=== PATIENT | female | born 1950 | race Caucasian/White ===

== ENCOUNTER 2019-11-20 14:10 | Emergency (ER) | payer MEDICARE, OTHER ==
[2019-11-20] MEDS ORDERED: Sodium Chloride 0.9% 10 ML Syringe FLUSH PRN (15:30)
[2019-11-20] MEDS ORDERED: Sodium Chloride 0.9% 2.5 ML Syringe FLUSH PRN (15:30)
[2019-11-20] MEDS ORDERED: Sodium Chloride 0.9% 1,000 ML IV ONE (15:30)
--- NOTE | 2019-11-20 16:00 | EDM.PDOC ---
ED HPI GENERAL MEDICAL PROBLEM - General Chief Complaint: Gastrointestinal Problem Stated Complaint: DIARRHEA FOR 3 PLUS DAYS Time Seen by Provider: 11/20/19 15:20 Source of Information: Reports: Patient History Limitations: Reports: No Limitations - History of Present Illness INITIAL COMMENTS - FREE TEXT/NARRATIVE: HISTORY AND PHYSICAL: History of present illness: Patient is a 69-year-old female presents to the ED with complaint of diarrhea. She states for the past 3 days she is having loose, watery stools every 15 minutes. Stool is nonblood. She denies fevers, chills, nausea, vomiting, abdominal pain, dysuria, hematuria, back pain, cough. She states she does have a cold and has a runny nose. She denies recent travel. She denies new medications. History of diabetes. Surgical history includes hysterectomy. Patient has taken immodium without relief. Review of systems: As per history of present illness and below otherwise all systems reviewed and negative. Past medical history: As per history of present illness and as reviewed below otherwise noncontributory. Surgical history: As per history of present illness and as reviewed below otherwise noncontributory. Social history: No reported history of drug or alcohol abuse. Family history: As per history of present illness and as reviewed below otherwise noncontributory. Physical exam: General: Patient sitting comfortably in no acute distress and nontoxic appearing HEENT: Atraumatic, normocephalic, pupils reactive, negative for conjunctival pallor or scleral icterus, mucous membranes moist, throat clear, neck supple, nontender, trachea midline. No meningeal signs. Lungs: Clear to auscultation, breath sounds equal bilaterally, chest nontender. Heart: S1S2, regular, negative for clicks, rubs, or overt murmur. Abdomen: Soft, nondistended, nontender. Negative for masses or hepatosplenomegaly. Negative for costovertebral tenderness. No rigidity, rebound , guarding. Pelvis: Stable nontender. Genitourinary: Deferred. Rectal: Deferred. Extremities: Atraumatic, negative for cords or calf pain. Neurovascular unremarkable. Neuro: Awake, alert, oriented. Cranial nerves II through XII unremarkable. Cerebellum unremarkable. Motor and sensory unremarkable throughout. Exam nonfocal. Notes: Diagnostics: CBC, CMP, lipase, UA, stool studies Therapeutics: 1L NS IV Prescriptions: Flagyl Impression: Diarrhea Plan: Take antibiotic as instructed Follow up with primary care provider Return to ED as needed as discussed Definitive disposition and diagnosis as appropriate pending reevaluation and review of above. - Related Data Allergies Allergy/AdvReac Type Severity Reaction Status Date / Time No Known Allergies Allergy Verified 02/17/14 15:49 Home Meds: Home Meds Exenatide Microspheres [Bydureon Pen] 0 mg SQ WEEKLY 11/20/19 [History] Pitavastatin Calcium [Livalo] 0 mg PO DAILY 11/20/19 [History] metFORMIN HCl [Metformin HCl ER] 1,000 mg PO DAILY 11/20/19 [History] metroNIDAZOLE [Flagyl] 500 mg PO Q12H 7 Days #14 tab 11/20/19 [Rx] Past Medical History HEENT History: Reports: Impaired Vision Cardiovascular History: Reports: High Cholesterol Endocrine/Metabolic History: Reports: Diabetes, Type II - Past Surgical History GI Surgical History: Reports: Colonoscopy Social & Family History - Family History Family Medical History: Noncontributory - Tobacco Use Smoking Status *Q: Never Smoker - Recreational Drug Use Recreational Drug Use: No ED ROS GENERAL - Review of Systems Review Of Systems: Comprehensive ROS is negative, except as noted in HPI. ED EXAM, GI/ABD - Physical Exam Exam: See Below (see dictation) Course - Vital Signs Last Recorded V/S: Last Vital Signs Temp 98.9 F 11/20/19 18:46 Pulse 91 11/20/19 18:46 Resp 16 11/20/19 18:46 BP 118/66 11/20/19 18:46 Pulse Ox 92 L 11/20/19 18:46 - Orders/Labs/Meds Orders: Active Orders 24 hr Category Date Time Status FECAL LACTOFERRIN [MREF] Stat Lab 11/20/19 15:52 Received OVA & PARASITES BY IMMUNOASSAY [MREF] Stat Lab 11/20/19 15:52 Received STOOL CULTURE/SHIGA TOXIN [MREF] Stat Lab 11/20/19 15:52 Received Saline Lock Insert [OM.PC] Stat Oth 11/20/19 15:30 Ordered Labs: Laboratory Tests 11/20/19 11/20/19 Range/Units 15:55 15:55 WBC 7.42 (4.0-11.0) K/uL RBC 4.58 (4.30-5.90) M/uL Hgb 13.5 (12.0-16.0) g/dL Hct 41.4 (36.0-46.0) % MCV 90.4 (80.0-98.0) fL MCH 29.5 (27.0-32.0) pg MCHC 32.6 (31.0-37.0) g/dL RDW Std Deviation 43.5 (28.0-62.0) fl RDW Coeff of Georgette 13 (11.0-15.0) % Plt Count 200 (150-400) K/uL MPV 9.50 (7.40-12.00) fL Neut % (Auto) 78.1 (48.0-80.0) % Lymph % (Auto) 9.6 L (16.0-40.0) % [place] % (Auto) 7.1 (0.0-15.0) % Eos % (Auto) 4.9 (0.0-7.0) % Baso % (Auto) 0.3 (0.0-1.5) % Neut # (Auto) 5.8 H (1.4-5.7) K/uL Lymph # (Auto) 0.7 (0.6-2.4) K/uL [place] # (Auto) 0.5 (0.0-0.8) K/uL Eos # (Auto) 0.4 (0.0-0.7) K/uL Baso # (Auto) 0.0 (0.0-0.1) K/uL Nucleated RBC % 0.0 /100WBC Nucleated RBCs # 0 K/uL Sodium 144 (136-145) mmol/L Potassium 3.7 (3.5-5.1) mmol/L Chloride 106 (98-107) mmol/L Carbon Dioxide 29.7 (21.0-32.0) mmol/L BUN 6 L (7.0-18.0) mg/dL Creatinine 0.6 (0.6-1.0) mg/dL Est Cr Clr Drug Dosing 74.23 mL/min Estimated GFR (MDRD) > 60.0 ml/min Glucose 106 (74-106) mg/dL Calcium 9.5 (8.5-10.1) mg/dL Total Bilirubin 1.0 (0.2-1.0) mg/dL AST 52 H (15-37) IU/L ALT 64 H (14-63) IU/L Alkaline Phosphatase 100 (46-116) U/L Total Protein 6.4 (6.4-8.2) g/dL Albumin 3.4 (3.4-5.0) g/dL Globulin 3.0 (2.6-4.0) g/dL Albumin/Globulin Ratio 1.1 (0.9-1.6) Lipase 83 (73-393) U/L Meds: Medications Discontinued Medications Generic Name Dose Route Start Last Admin Trade Name Freq PRN Reason Stop Dose Admin Sodium Chloride 1,000 mls @ 999 mls/hr 11/20/19 15:30 11/20/19 15:51 Normal Saline IV 11/20/19 16:30 999 mls/hr STAT ONE Administration Sodium Chloride 10 ml 11/20/19 15:30 11/20/19 15:51 Saline Flush FLUSH 10 ml ASDIRECTED PRN Administration Keep Vein Open Sodium Chloride 2.5 ml 11/20/19 15:30 11/20/19 15:51 Saline Flush FLUSH 2.5 ml ASDIRECTED PRN Administration Keep Vein Open Departure - Departure Time of Disposition: 18:49 Disposition: Home, Self-Care 01 Condition: Good Clinical Impression: Diarrhea - Discharge Information Prescriptions: metroNIDAZOLE [Flagyl] 500 mg PO Q12H 7 Days #14 tab Instructions: Diarrhea, Adult, [id number] Referrals: Sonam To MD [Primary Care Provider] - Forms: ED Department Discharge Additional Instructions: The following information is given to patients seen in the emergency department who are being discharged to home. This information is to outline your options for follow-up care. We provide all patients seen in our emergency department with a follow-up referral. The need for follow-up, as well as the timing and circumstances, are variable depending upon the specifics of your emergency department visit. If you don't have a primary care physician on staff, we will provide you with a referral. We always advise you to contact your personal physician following an emergency department visit to inform them of the circumstance of the visit and for follow-up with them and/or the need for any referrals to a consulting specialist. The emergency department will also refer you to a specialist when appropriate. This referral assures that you have the opportunity for follow-up care with a specialist. All of these measure are taken in an effort to provide you with optimal care, which includes your follow-up. Under all circumstances we always encourage you to contact your private physician who remains a resource for coordinating your care. When calling for follow-up care, please make the office aware that this follow-up is from your recent emergency room visit. If for any reason you are refused follow-up, please contact the [facility] Emergency Department at and asked to speak to the emergency department charge nurse. [facility] [address] [place] [address] [address] Take antibiotic as instructed Follow up with primary care provider Return to ED as needed as discussed Sepsis Event Note - Evaluation Sepsis Screening Result: No Definite Risk - Focused Exam Vital Signs: Vital Signs Temp Pulse Resp BP Pulse Ox 11/20/19 18:46 98.9 F 91 16 118/66 92 L 11/20/19 17:36 98.9 F 86 127/69 95 11/20/19 15:14 99.7 F 98 18 118/55 L 95 Date Exam was Performed: 11/20/19 Time Exam was Performed: 21:57 - My Orders Last 24 Hours: My Active Orders 11/20/19 15:30 Saline Lock Insert [OM.PC] Stat 11/20/19 15:52 FECAL LACTOFERRIN [MREF] Stat OVA & PARASITES BY IMMUNOASSAY [MREF] Stat STOOL CULTURE/SHIGA TOXIN [MREF] Stat - Assessment/Plan Last 24 Hours: My Active Orders 11/20/19 15:30 Saline Lock Insert [OM.PC] Stat 11/20/19 15:52 FECAL LACTOFERRIN [MREF] Stat OVA & PARASITES BY IMMUNOASSAY [MREF] Stat STOOL CULTURE/SHIGA TOXIN [MREF] Stat
[2019-11-20 16:26] LABS: BLOOD UREA NITROGEN,BUN 6 mg/dL (7.0-18.0); CARBON DIOXIDE,CO2 29.7 mmol/L (21.0-32.0); CHLORIDE,CL 106 mmol/L (98-107); GLUCOSE RANDOM 106 mg/dL (74-106); LIPASE 83 U/L (73-393); POTASSIUM,K 3.7 mmol/L (3.5-5.1); SODIUM,NA 144 mmol/L (136-145)
== END 2019-11-20 19:06 | disposition home or self-care (01) ==
LOC: MW.ED 14:10
DX: R19.7 Diarrhea, unspecified (principal); E11.9 Type 2 diabetes mellitus without complications; E78.00 Pure hypercholesterolemia, unspecified; Z79.84 Long term (current) use of oral hypoglycemic drugs; Z79.899 Other long term (current) drug therapy
CPT/HCPCS: 80053; 83630; 83690; 85025; 87045; 87046; 87324; 87328; 87329; 87804; 87899; 96360; 99284; J7030; 99283